=== PATIENT | female | born 1970 | race Caucasian/White ===

== ENCOUNTER 2021-01-20 15:34 | Emergency (ER) | payer OTHER ==
[~2021-01-20] VITALS: Ht 167.6 cm; Wt 81.7 kg
[2021-01-20 15:34] VITALS: BP 123/93
[2021-01-20] MEDS ORDERED: CLONIDINE HCL0.1 MG PO (16:24)
[2021-01-20] MEDS ORDERED: VALIUM2 MG PO (16:24)
[2021-01-20] MEDS ORDERED: PHENERGAN 25 MG25 M1 PO (16:24)
== END 2021-01-20 16:37 | disposition home or self-care (01) ==
LOC: ER 15:34
DX: F11.23 Opioid dependence with withdrawal (principal); Z90.711 Acquired absence of uterus with remaining cervical stump; Z90.89 Acquired absence of other organs; Z98.890 Other specified postprocedural states